=== PATIENT | female | born 1955 | race American Indian/Alaskan Native ===

== ENCOUNTER 2016-10-01 10:28 | Emergency (ER) | payer MEDICARE ==
[2016-10-01] MEDS ORDERED: BENADRYL IM ONE (12:03)
[2016-10-01] MEDS ORDERED: HALDOL IM ONE (12:03)
[2016-10-01 13:42] LABS: Urine Drugs of Abuse Note Disclamer
[2016-10-01 13:48] LABS: Bilirubin,Urine NEG (Negative); Blood,Urine NEG (Negative); Ketones,Urine NEG (Negative); Leukocyte Esterase,Urine TR (Negative); Mucus,Urine FEW /HPF; Nitrite,Urine NEG (Negative); Protein,Urine <15 mg/dL mg/dL (Negative); Urobilinogen,Urine < 2.0 mg/dL (<2.0)
[2016-10-01 14:43] LABS: Basophils % (Auto) 0.5 % (0.0-1.8); Eosinophils % (Auto) 0.5 % (0.0-4.3); Hematocrit 39.5 % (30.3-42.9); Hemoglobin 12.5 gm/dl (10.1-14.3); Mean Corpuscular HGB Conc 32 % (30-34); Mean Corpuscular Volume 82 fl (79-97); Platelet Count 168 K/mm3 (140-440); Red Blood Count 4.84 M/mm3 (3.65-5.03); Red Cell Distribution Width 15.5 % (13.2-15.2)
[2016-10-01 14:44] LABS: Mean Corpuscular Hemoglobin 26 pg (28-32)
[2016-10-01 14:57] LABS: Anion Gap 18 mmol/L; Blood Urea Nitrogen 21 mg/dL (7-17); Calcium 9.2 mg/dL (8.4-10.2); Carbon Dioxide 26 mmol/L (22-30); Chloride 102.4 mmol/L (98-107); Glucose 111 mg/dL (65-100); Potassium 4.1 mmol/L (3.6-5.0); Sodium 142 mmol/L (137-145)
--- NOTE | 2016-10-01 15:09 | Emergency Department Report ---
HPI - General Chief Complaint: Psych Time Seen by Provider: 10/01/16 12:01 - HPI HPI: Chief complaint: Abnormal behavior HPI: Patient was brought in by EMS after being found by the police walking down the middle of the street. Patient is quite hyperverbal and complaining that we have no right see her. Patient states she takes Risperdal for her nerves and when asked by me she was taking for schizophrenia she became quite agitated. Patient appears paranoid and is very hyperverbal. Patient states she lives in [place] but was here visiting one of her daughters. Mode of arrival: [EMS] Source: [Patient] and nursing notes Began: Unable to assess Duration: Unable to assess Context: Per mental health conversion worker patient informed him that she was in fact schizophrenic Quality: No complaints of pain Severity: Improved with: Unable to assess Worsened with: Unable to assess Associated signs and symptoms: Unable to assess ED Past Medical Hx - Past Medical History Previous Medical History?: Yes Hx Psychiatric Treatment: Yes Additional medical history: ulcers - Surgical History Past Surgical History?: No Additional Surgical History: unable to access - Social History Smoking Status: Current Some Day Smoker ED Review of Systems ROS: Stated complaint: MH/EVAL Other details as noted in HPI Comment: Unobtainable due to pts medical conditions (patient uncooperative) Physical Exam - Physical Exam Vital Signs: Vital Signs 10/01/16 10/01/16 10:41 11:00 Temperature 98.6 F Pulse Rate 120 H Respiratory 20 20 Rate Blood Pressure 198/89 [Left] O2 Sat by Pulse 99 Oximetry Physical Exam: GENERAL: The patient is well-developed well-nourished . Patient pacing the room reading from the Bible and initially would not stop reading talk to me without significant coaxing. Patient is hyperverbal and paranoid. HEENT: Normocephalic. Atraumatic. Extraocular motions are intact. Patient has moist mucous membranes. NECK: Supple. No meningitic signs are noted. There is no adenopathy noted. CHEST/LUNGS: Clear to auscultation. There is no respiratory distress noted. HEART/CARDIOVASCULAR: Regular. There is no tachycardia. There is no gallop rub or murmur. ABDOMEN: Abdomen is soft, nontender. Patient has normal bowel sounds. There is no abdominal distention. SKIN: There is no rash. There is no edema. There is no diaphoresis. NEURO: The patient is awake, alert. The patient is uncooperative. The patient has no gross focal neurologic deficits. The patient pressured speech. MUSCULOSKELETAL: There is no tenderness or deformity. There is no limitation range of motion. There is no evidence of acute injury. ED Course Vital Signs 10/01/16 10/01/16 10:41 11:00 Temperature 98.6 F Pulse Rate 120 H Respiratory 20 20 Rate Blood Pressure 198/89 [Left] O2 Sat by Pulse 99 Oximetry - Reevaluation(s) Reevaluation #1: 10/01/16 Patient was evaluated by mental health conversion worker and 1013 was executed. ED Medical Decision Making - Lab Data Result diagrams: 10/01/16 14:30 10/01/16 14:45 Laboratory Tests 10/01/16 14:45 Plasma/Serum Alcohol < 0.01 Urinalysis and urine drug screen were both negative Critical care attestation.: If time is entered above; I have spent that time in minutes in the direct care of this critically ill patient, excluding procedure time. ED Disposition Clinical Impression: Medical clearance for psychiatric admission Disposition: DC/TX PSY HOSP/PSY UNIT Is pt being admited?: No Does the pt Need Aspirin: No Condition: Stable Referrals: PRIMARY CARE, [Primary Care Provider] - 3-5 Days Time of Disposition: 15:13 (transfer to a psychiatric facility)
--- NOTE | 2016-10-01 18:13 | Consultation ---
History of Present Illness - Reason for Consult Consult date: 10/01/16 Reason for consult: hyperverbal and hyperreligious patient brought by police - Chief Complaint Chief complaint: they snatched me and brought me here - History of Present Psychiatric Illness This is a 61 year old female with no notable medical history who presents secondary to acute disorganized behaviors that brought her to the attention of law enforcement. The patient was given a PRN and was sedated on initial approach. Psychiatry was consulted to help manage the patient's symptoms and to make recommendations for placement. Review of the Mental Health assessment suggested that the patient was hyperverbal, hyperreligious and disorganized. She was apparently uncooperative and ressisting the assistance provided by law enforcement as well as medical staff. This was suggestive of a general lack of insight on presentation. During my interview, she continued to have very poor insight and demanded that we release her. She was disorganized in her speech and mildly dysarthric. Her narrative was non-linear and she was unaware of how to interact with the densitometrist in the medical setting, suggestive of further lack of insight and judgement. Medications and Allergies Allergies Allergy/AdvReac Type Severity Reaction Status Date / Time No Known Allergies Allergy Unverified 10/01/16 11:02 Mental Status Exam - Vital signs Last Vital Signs Temp 98.1 F 10/01/16 16:59 Pulse 85 10/01/16 16:59 Resp 16 10/01/16 16:59 BP 198/89 10/01/16 10:41 Pulse Ox 95 10/01/16 16:59 - Exam Orientation: person Affect: anxious, agitated Mood: anxious Thought content: obsessions, anabaptism Thought Process: Loose Associations, Disorganized Perceptions: none Speech: pressured Concentration: distractible Motor activity: restless Level of consciousness: sedated Memory: Recent Impaired, Remote Impaired Sleep Symptoms: Sleepiness Interaction: irritable, uncooperative Results Result Diagrams: 10/01/16 14:30 10/01/16 14:45 Abnormal lab results 10/01/16 10/01/16 Range/Units 14:30 14:45 MCH 26 L (28-32) pg RDW 15.5 H (13.2-15.2) % Lymph % (Auto) 49.9 H (13.4-35.0) % Jackson % (Auto) 8.3 H (0.0-7.3) % BUN 21 H (7-17) mg/dL Glucose 111 H (65-100) mg/dL All other labs normal. Assessment and Plan Assessment and plan: This is a 61 year old female who has no medical problems now presenting with an acute manic episode. Although she has reportedly sought mental health care in the past, she was guarded about that history during the Mental Health interview. She did recount previously being on risperidone during my assessment. There is limited information at this time, but we will restart risperidone and titrate to an effective dose while we monitor to current symptom presentation. We will continue to follow this patient and will recommend that she transfer to an emergency receiving facility after medically being cleared in the ER.
[2016-10-01] MEDS ORDERED: RisperDAL PO SCH (22:00)
--- NOTE | 2016-10-02 13:16 | Emergency Department Report ---
Blank Doc - Documentation Documentation: Vital Signs - 24 hr 10/01/16 10/02/16 16:59 07:25 Temperature 98.1 F 98.2 F Pulse Rate 85 100 H Respiratory 16 18 Rate Blood Pressure 147/108 [Left] O2 Sat by Pulse 95 95 Oximetry No events reported. Vital signs reviewed. Awaiting placement
[2016-10-02 13:58] VITALS: BP 146/78
--- NOTE | 2016-10-02 16:26 | Progress Note ---
Subjective - Reason for Consult Consult date: 10/02/16 Reason for consult: placement and persistent disorganized thought process - Chief Complaint Chief complaint: This patient has consistently narrated a story that suggests that she is not experiencing an acute psychotic episode. Instead, her presentation may be a baseline level of functioning. She has some mild hyperreligious thinking and has some mild disorganized thought process. Currently, her symptoms are not severe enough for her to be unable to take care of her ADLs. Furthermore, she is not threatening anyone and definitely not threatening herself. No SI is noted. No HI. Mental Status Exam - Vital signs Last Vital Signs Temp 98.5 F 10/02/16 13:57 Pulse 90 10/02/16 13:57 Resp 18 10/02/16 13:57 BP 146/78 10/02/16 13:57 Pulse Ox 100 10/02/16 13:57 - Exam Orientation: time, place, person Affect: anxious Mood: anxious Thought content: obsessions Thought Process: Circumstantial Perceptions: none Speech: slurring Concentration: focused Motor activity: normal Level of consciousness: alert Memory: Intact Sleep Symptoms: None Interaction: cooperative Assessment and Plan This is a 61 year old female who has no medical problems now presenting with an acute manic episode. Although she has reportedly sought mental health care in the past, she was guarded about that history during the Mental Health interview. She did recount previously being on risperidone during my assessment. There is limited information at this time, but we will restart risperidone and titrate to an effective dose while we monitor to current symptom presentation. We will continue to follow this patient and will recommend that she transfer to an emergency receiving facility after medically being cleared in the ER. 10/02: On reexamination, this may be the patient's baseline level of functioning. I have informed Mental Health to contact her daughter to confer. At this time she doesn't meet criteria to continue a 1013 and it should be rescinded. Upon Mental Health contacting her daughter and verifying her level of functioning at baseline, she can be safely discharged with a script to follow up with her outpatient provider.
== END 2016-10-02 13:58 ==
LOC: EEVIPCON 10:28 → ED 10:28
DX: R45.1 Restlessness and agitation (principal); F60.0 Paranoid personality disorder; F17.200 Nicotine dependence, unspecified, uncomplicated
CPT/HCPCS: 36415; 80048; 80307; 81001; 85025; 96372; 99285; G0480; J1200; J1630; 80320